=== PATIENT | male | born 1960 | race Caucasian/White ===

== ENCOUNTER → 2018-12-09 | Outpatient (CLI) | payer OTHER | LOC: COL.VAS 14:34 | DX: I82.431 Acute embolism and thrombosis of right popliteal vein (principal); I82.441 Acute embolism and thrombosis of right tibial vein ==

== ENCOUNTER → 2018-12-09 | Outpatient (CLI) | payer OTHER | LOC: EDSTATUS 07:15 → ZCOL.LAB 12:26 | DX: Z00.00 Encounter for general adult medical examination without abnormal findings (principal); M79.604 Pain in right leg ==